=== PATIENT | female | born 1955 | race Caucasian/White ===

== ENCOUNTER 2025-09-03 17:31 | Emergency (ER) | payer MEDICARE, OTHER, SELFPAY ==
[2025-09-03] VITALS (7 sets, daily range): BP systolic 131–160; BP diastolic 56–72; BMI 25.8
[2025-09-03 17:59] LABS: Hematocrit 41.3 % (37.0-47.0); Hemoglobin 14.2 g/dL (12.0-16.0); Mean Corp Hgb Conc. 34.4 g/dL (33.0-37.0); Mean Corpuscular Volume 88.8 fL (81.0-99.0); Nucleated Red Blood Cells % 0 %; Platelet Count 346 10^3/uL (130-400); Red Cell Dist. Width 13.3 % (11.5-14.5)
[2025-09-03 18:11] LABS: ALT (SGPT) 28 U/L (0-35); AST (SGOT) 26 U/L (14-36); Albumin 4.9 g/dl (3.5-5.0); Alkaline Phosphatase 79 U/L (38-126); Blood Urea Nitrogen 23 mg/dl (7-17); Calcium 9.9 mg/dl (8.4-10.2); Carbon Dioxide 27 mmol/L (22-30); Chloride 101 mmol/L (98-107); Glucose 152 mg/dl (70-99); Potassium 4.4 mmol/L (3.5-5.1); Sodium 136 mmol/L (135-145); Total Protein 7.5 g/dl (6.3-8.2); eGFR > 60.00
[2025-09-03 18:18] LABS: Troponin I < 0.012 ng/ml
--- NOTE | 2025-09-03 20:01 | ED.GENMED ---
History of Present Illness
General
Chief Complaint: Chest Pain
Source: patient
Time Seen by Provider: 09/03/25 19:58
History of Present Illness
History of Present Illness:
70-year-old female presents emergency room complaining of chest pain. Patient states that she was awoken from sleep at about 3 AM when she was experiencing discomfort in her left anterior chest. Pain has been constant since then. Nothing really
seems to make the pain better or worse. Exertion does not change the pain. Taking a deep breath does not change the pain. She took a nitroglycerin which is prescribed her which did not affect the pain. She measured her blood pressure
today and noted it to be 160 systolic. She took her blood pressure medicine at 6 AM which brought it down she says the 80s systolic. It went back up to 160 after drinking some coffee and eating some chocolate. She saw her family doctor today who
referred her to the emergency room. While at the doctor's office her blood pressure was again 160 systolic and her doctor told her to take 50 mg of hydrochlorothiazide which she did. Patient denies any associated diaphoresis, nausea or shortness
of breath. She denies any recent travel or periods of immobilization. She does not recall any unusual activity, lifting etc. She indicates that she can reproduce the pain by pushing on it.
Past History
Past History
ED Past Medical History: GERD, HTN and Other (Trigeminal neuralgia)
ED Past Surgical History: Other (Surgery for trigeminal neuralgia)
Social History
Tobacco: Non-smoker
Alcohol: Occasional
Drug: None
Phy Exam
Physical Exam
Physical Exam:
General: Awake, Alert, Oriented X3. No acute distress.
Vitals: unremarkable
Head: Atraumatic
Eyes: Pupils equal, EOMI
Throat: Airway intact, no exudates
Neck: Trachea midline
Chest: Area mild tenderness located in the center of the left hemithorax over about the fifth rib
Lungs: Clear and equal b/l
Heart: Regular rate, no murmurs
Abd: Soft, Nontender, No pulsatile mass
Neuro: Nonfocal
Skin: Warm, dry, no rash
Extremities: pulses equal b/l, no edema
Scores
Heart Score for Chest Pain Patients
STEMI patient?: No
History: Slightly or Non-Suspicious
ECG: Nonspecific Repolarization
Age: >/= 65 years
Risk Factors: 1 or 2 Risk Factors
Troponin: </= Normal Limit
Heart Score for Chest Pain Patients: 4
Heart Score Risk: 20.3% MACE over next 6 weeks
Course
Orders/Labs/Results
Orders:
Orders
09/03/25 17:32
Electrocardiogram (*1) Urgent
Reason for Study: Chest Pain
EKG- Treatment ONCE
09/03/25 17:47
Complete Blood Count/With Diff Urgent
Comprehensive Metabolic Panel Urgent
Troponin I Urgent
09/03/25 20:10
CR Chest - 2 Views Urgent
Comment:
Reason For Exam: chest pain
09/03/25 20:15
Ketorolac [Toradol] 15 mg IV NOW STA
09/03/25 20:41
Troponin I Urgent
09/03/25 20:48
Electrocardiogram (*1) Urgent
Reason for Study: Other
Other Reason for Exam: troponin redraw
EKG- Treatment ONCE
Abnormal Lab Results
09/03/25
17:47
WBC 12.3 H 10^3/uL
(4.8-10.8)
Absolute Neuts (auto) 8.4 H 10^3/uL
(1.4-6.5)
Absolute Monos (auto) 1.3 H 10^3/uL
(0.1-0.6)
Lymphocytes % 19.5 L %
(20.5-51.1)
Monocytes % 10.9 H %
(1.7-9.3)
BUN 23 H mg/dl
(7-17)
Glucose 152 H mg/dl
(70-99)
09/03/25 17:47
09/03/25 17:47
Vital Signs
Initial and Last Documented VS:
Initial Vital Signs
Temp Pulse Resp BP Pulse Ox
98.6 F 85 20 160/72 98
09/03/25 17:39 09/03/25 17:39 09/03/25 17:39 09/03/25 17:39 09/03/25 17:39
Last Documented Vital Signs
Temp Pulse Resp BP Pulse Ox
98.2 F 74 11 135/61 96
09/03/25 19:19 09/03/25 21:48 09/03/25 21:48 09/03/25 21:48 09/03/25 21:48
MDM/Problems Addressed
Differential Diagnosis Includes:
ACS, chest wall pain, GERD, pneumothorax
MDM/Problems Addressed:
Patient presents with left-sided chest pain. EKG shows no acute ischemic changes x 2. Troponin is normal x 2. Chest x-ray is no acute abnormality. Patient is hemodynamically stable here. I am able to reproduce some chest discomfort with
palpation of the left chest wall. Suspect chest wall pain. Certainly we have ruled out acute coronary syndrome. Patient stable for discharge home. Follow-up with her primary care doctor and cardiology as an outpatient.
Chronic conditions affecting care: HTN and Other (Hypercholesterolemia)
*Pulse Oximetry
SaO2: 97
Oxygen Mode of Delivery: Room air
Patient hypoxic: no
*EKG
Interpreted by ED Provider?: Yes
Interpretation: abnormal
Heart Rate: 79
Rate: normal
Rhythm: sinus
[place]: normal axis
Interval: normal interval
QRS Pattern: normal QRS
Ischemia: non-specific ST changes
*Audiovisual Tech Interpretation
Rate: normal
Interpretation: normal
Rhythm: sinus
*Critical Care Note
Total Time (30-74mins, 75-104mins- exclusive of procedures): Not Applicable
ED Attending Note
-
Portions of this chart may have been created with voice recognition software.� Occasional wrong word or��sound alike� substitutions may have occurred due to the inherent limitations of voice recognition software.
Discharge Plan
Departure
Patient Disposition: Home (Routine Discharge)
Date of Disposition: 09/03/25
Time of Disposition: 21:41
Patient with high blood pressure during this ER visit?: Yes
Condition: Good
Discharge Problem:
Chest pain
Instructions: Chest Pain NON-[facility] [place] Follow Up
Referrals:
Jessenia Shell MD [Family Provider, [facility]]
Activity Restrictions/Additional Instructions:
You can take ibuprofen 400mg every 6 hours as needed for the chest wall pain.
Interventions
Interventions:
*General Assessment Last Done: 09/03/25 19:16
*Neglect/Abuse Screening Last Done: 09/03/25 17:43
*ED COVID-19 Vaccine History Last Done: 09/03/25 19:16
*ED Influenza Vaccine History Last Done: 09/03/25 19:16
[facility] Fall Risk Assessment Tool Last Done: 09/03/25 19:19
*Risk Screen - Suicide (C-SSRS) Last Done: 09/03/25 17:39
*Nursing Disposition Last Done: 09/03/25 21:57
ED- Cardiac Assessment Last Done: 09/03/25 19:20
Discharge Date and Time
Discharge Date/Time: 09/03/25 22:01
Print Language: ARMENIAN
[2025-09-03] MEDS: TORADOL 15 MG IV (20:42)
[2025-09-03 21:16] LABS: Troponin I < 0.012 ng/ml
== END 2025-09-03 22:01 | disposition home or self-care (01) ==
LOC: EMR 17:31
PROVIDERS: Emergency Medicine; EMERGENCY PHYSICIAN Emergency Medicine; FAMILY PHYSICIAN Family Medicine
DX: R07.89 Other chest pain (principal); I10 Essential (primary) hypertension; E78.00 Pure hypercholesterolemia, unspecified; G50.0 Trigeminal neuralgia
CPT/HCPCS: 99284; 96374; 71046; 80053; 84484; 85025; 93005